=== PATIENT | male | born 1950 | race Caucasian/White ===

== ENCOUNTER 2019-06-17 10:06 | Emergency (ER) | payer MEDICARE, OTHER ==
[~2019-06-17] VITALS: Ht 172.7 cm; Wt 79.4 kg
[2019-06-17] MEDS ORDERED: ASPIRIN 81 MG CHEW (CHILDREN'S ASA) PO ONE (10:30)
[2019-06-17 10:35] LABS: HEMATOCRIT 43 % (40-54); HEMOGLOBIN 15.2 G/DL (13.3-17.7); MEAN CORPUSCULAR HEMOGLOBIN 32 PG (25-34); WHITE BLOOD COUNT 9.1 10^3/uL (4.3-11.0)
[2019-06-17 10:36] LABS: BASOPHILS # (AUTO) 0.1 10^3/uL (0.0-0.1); BASOPHILS % (AUTO) 1 % (0-10); EOSINOPHILS # (AUTO) 0.2 10^3/uL (0.0-0.3); EOSINOPHILS % (AUTO) 3 % (0-10); LYMPHOCYTES # (AUTO) 1.6 X 10^3 (1.0-4.0); LYMPHOCYTES % (AUTO) 18 % (12-44); MEAN CORPUSCULAR HGB CONC 35 G/DL (32-36); MEAN CORPUSCULAR VOLUME 91 FL (80-99); MEAN PLATELET VOLUME 9.9 FL (7.4-10.4); MONOCYTES # (AUTO) 0.7 X 10^3 (0.0-1.0); MONOCYTES % (AUTO) 6 % (0-12); NEUTROPHILS # (AUTO) 6.5 X 10^3 (1.8-7.8); NEUTROPHILS % (AUTO) 71 % (42-75); PLATELET COUNT 175 10^3/uL (130-400); RED CELL DISTRIBUTION WIDTH 12.4 % (10.0-14.5)
--- NOTE | 2019-06-17 10:44 | ED Chest Pain ---
General Chief Complaint: Chest Pain Stated Complaint: CHEST PAIN Source: patient Exam Limitations: no limitations History of Present Illness Date Seen by Provider: Jun 17, 2019 Time Seen by Provider: 10:09 Initial Comments The patient presents to ER by private conveyance with chief complaint of 3 days intermittent chest pain while at rest lasting for a few seconds starting up under his left rib cage and radiating down into his left abdomen. He describes it as a dull, shooting pain. He made an appointment to follow-up with his primary care doctor early next week for this symptom but decided today it might be wiser to get it checked out in the ER. No history of coronary disease CHF. 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 Is not having any significant swelling, orthopnea, shortness of breath or coughing. He does have mild intermittent asthma and has not been using any breathing treatments recently. No fevers or chills, cough. He's having some tenderness and a knot in the muscles on his back as well as tenderness in both anterior rib cages which she associates with musculoskeletal strain. He's having no nausea sweats. Is never a smoker, diabetic and has no history of high cholesterol. He does take medicines for high blood pressure. He says he takes 2x 500 mg tablets of aspirin daily for rheumatoid arthritis. He does not take any DMARDS. Allergies and Home Medications Allergies Coded Allergies: sulfamethoxazole (Verified Allergy, Unknown, anaphylaxis, 06/17/19) trimethoprim (Verified Allergy, Unknown, anaphylaxis, 06/17/19) Patient Home Medication List Home Medication List Reviewed: Yes Review of Systems Review of Systems Constitutional: No chills, No diaphoresis EENTM: No Blurred Vision, No Double Vision Respiratory: Denies Cough, Denies Shortness of Air Cardiovascular: See HPI, Chest Pain, Edema (trace); Denies Lightheadedness, Denies Palpitations, Denies Syncope Gastrointestinal: Denies Constipated, Denies Diarrhea, Denies Nausea Genitourinary: Denies Burning, Denies Discharge Musculoskeletal: see HPI, back pain; No joint pain Past Nhvhmbu-Qsydct-Eblcun Hx Patient Social History Alcohol Use: Denies Use Recreational Drug Use: No Smoking Status: Never a Smoker Physical Exam Vital Signs Vital Signs - First Documented 06/17/19 10:18 Temp 98.0 Pulse 79 Resp 18 B/P (MAP) 142/66 (91) Pulse Ox 79 Capillary Refill : Height, Weight, BMI Height: '" Weight: lbs. oz. kg; BMI Method: General Appearance: No Apparent Distress, WD/WN HEENT: PERRL/EOMI, Pharynx Normal, Moist Mucous Membranes Neck: Full Range of Motion, Normal Inspection Respiratory: Lungs Clear, Normal Breath Sounds, No Accessory Muscle Use, No Respiratory Distress, Other (bilateral chest wall mildly tender to palpation) Cardiovascular: Regular Rate, Rhythm, No Murmur, Normal Peripheral Pulses, Othe r (trace bipedal edema) Gastrointestinal: Normal Bowel Sounds, Non Tender, Soft Neurologic/Psychiatric: Alert, Oriented x3, Normal Mood/Affect Skin: Normal Color, Warm/Dry Progress/Results/Core Measures Results/Orders Lab Results Laboratory Tests Test 06/17/19 10:22 Range/Units White Blood Count 9.1 4.3-11.0 10^3/uL Red Blood Count 4.77 4.35-5.85 10^6/uL Hemoglobin 15.2 13.3-17.7 G/DL Hematocrit 43 40-54 % Mean Corpuscular Volume 91 80-99 FL Mean Corpuscular Hemoglobin 32 25-34 PG Mean Corpuscular Hemoglobin Concent 35 32-36 G/DL Red Cell Distribution Width 12.4 10.0-14.5 % Platelet Count 175 130-400 10^3/uL Mean Platelet Volume 9.9 7.4-10.4 FL Neutrophils (%) (Auto) 71 42-75 % Lymphocytes (%) (Auto) 18 12-44 % Monocytes (%) (Auto) 6 0-12 % Eosinophils (%) (Auto) 3 0-10 % Basophils (%) (Auto) 1 0-10 % Neutrophils # (Auto) 6.5 1.8-7.8 X 10^3 Lymphocytes # (Auto) 1.6 1.0-4.0 X 10^3 Monocytes # (Auto) 0.7 0.0-1.0 X 10^3 Eosinophils # (Auto) 0.2 0.0-0.3 10^3/uL Basophils # (Auto) 0.1 0.0-0.1 10^3/uL Prothrombin Time 12.7 12.2-14.7 SEC INR Comment 0.9 0.8-1.4 Activated Partial Thromboplast Time 29 24-35 SEC Sodium Level 136 135-145 MMOL/L Potassium Level 3.5 L 3.6-5.0 MMOL/L Chloride Level 92 L 98-107 MMOL/L Carbon Dioxide Level 28 21-32 MMOL/L Anion Gap 16 H 5-14 MMOL/L Blood Urea Nitrogen 19 H 7-18 MG/DL Creatinine 1.01 0.60-1.30 MG/DL Estimat Glomerular Filtration Rate > 60 BUN/Creatinine Ratio 19 Glucose Level 105 70-105 MG/DL Calcium Level 9.3 8.5-10.1 MG/DL Corrected Calcium 9.1 8.5-10.1 MG/DL Magnesium Level 2.1 1.6-2.4 MG/DL Total Bilirubin 0.5 0.1-1.0 MG/DL Aspartate Amino Transf (AST/SGOT) 20 5-34 U/L Alanine Aminotransferase (ALT/SGPT) 11 0-55 U/L Alkaline Phosphatase 55 40-136 U/L Myoglobin 74.3 10.0-92.0 NG/ML Troponin I < 0.30 <0.30 NG/ML Pro-B-Type Natriuretic Peptide 94.9 H <75.0 PG/ML Total Protein 6.8 6.4-8.2 GM/DL Albumin 4.2 3.2-4.5 GM/DL My Orders Orders - JUSTIN,TONY J Ekg Tracing (06/17/19 10:12) Continuous Ekg Monitoring (06/17/19 10:12) Cbc With Automated Diff (06/17/19 10:29) Magnesium (06/17/19 10:29) Chest 1 View Ap/Pa Only (06/17/19 10:29) Comprehensive Metabolic Panel (06/17/19 10:29) Myoglobin Serum (06/17/19 10:29) Protime With Inr (06/17/19 10:29) Partial Thromboplastin Time (06/17/19 10:29) O2 (06/17/19 10:29) Lipid Panel (06/18/19 06:00) Aspirin Chewable Tablet (Baby Aspirin Ch (06/17/19 10:30) Ed Iv/Invasive Line Start (06/17/19 10:29) Troponin I (06/17/19 10:29) Probnp Fs (06/17/19 10:29) Troponin I (06/17/19 12:20) Ekg Tracing (06/17/19 11:24) Medications Given in ED Current Medications Medications Dose Ordered Sig/Alfonso Route Start Time Stop Time Status Last Admin Dose Admin Aspirin 324 mg ONCE ONCE PO 06/17/19 10:30 06/17/19 10:31 DC 06/17/19 10:33 324 MG Vital Signs/I&O 06/17/19 10:18 Temp 98.0 Pulse 79 Resp 18 B/P (MAP) 142/66 (91) Pulse Ox 79 Progress Progress Note #1: Time: 10:41 Progress Note Fleeting, seconds long dull achy pain tenderness to palpation over the same areas. Musculoskeletal be most likely. Plan to do a cardiac workup. He's not having any pain at this time. We'll give him aspirin 324 mg and get a chest radiograph. If his troponin is negative then his heart score would be 3 points. Low risk; 0.91.7% 30-day MACE. Progress Note #2: Time: 11:45 Progress Note Discussed the case with the patient and the plan to repeat troponin 3 hours. Patient says he does not want to wait that long and is declined to wait for a second troponin. His chest pain has been intermittent for the last 3 days so one troponin is probably significant enough to rule out at this time. We will give him referral to cardiology but he has an appointment in a couple days with primary care and he says he would prefer to go see them first. I suspect musculoskeletal is very likely and since she started on meloxicam and aspirin and have offered to do prednisone. Initial ECG Impression Date: Jun 17, 2019 Initial ECG Impression Time: 10:12 Initial ECG Rate: 76 Initial ECG Rhythm: Normal Sinus Initial ECG Intervals: QT (417) Initial ECG Impression: Normal Initial ECG Comparisson: No Previous ECG Available Comment Normal sinus rhythm without ST elevation or depression. Diagnostic Imaging Diagonstic Imaging: Xray Plain Films/CT/US/NM/MRI: chest (1v) Comments NAME: JOSE ACEVEDO MED REC#: [id number] PT STATUS: REG ER : 1950 PHYSICIAN: TONY ANDERSON MD ADMIT DATE: 06/17/19/ER FS Draft Date of Exam:06/17/19 CHEST 1 VIEW AP/PA ONLY Chest one view at 1038 hours. INDICATION: Chest pain. There are no prior studies available for comparison. FINDINGS: Heart size is within normal limits. Lungs are clear. There is no evidence for failure, pneumonia or for pleural effusion. The mediastinum is not widened. The osseous structures are intact. IMPRESSION: There is no evidence for an acute cardiopulmonary abnormality. Dictated on workstation # [id number] Dict: 06/17/19 1105 Trans: 06/17/19 1113 [id number] Interpreted by: VERONICA MOSS MD Electronically signed by: Reviewed: Reviewed by Me Departure Impression Primary Impression: Chest wall pain Disposition: HOME, SELF-CARE Condition: Stable Departure-Patient Inst. Decision time for Depature: 11:46 Referrals: Renzo TINEO MD, WESLEY D DO (PCP) Primary Care Physician Patient Instructions: Chest Pain (DC) Add. Discharge Instructions: You may follow-up with cardiology Dr. Tineo in the clinic by calling Wednesday for an appointment. Keep your follow-up appointment with primary care. 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 All discharge instructions reviewed with patient and/or family. Voiced understanding. Scripts Prednisone (Prednisone) 20 Mg Tab 40 MG PO BID for 5 Days, #20 TAB 0 Refills Prov: TONY ANDERSON 06/17/19 TONY ANDERSON Jun 17, 2019 10:44
[2019-06-17 10:45] LABS: INR 0.9 (0.8-1.4); PROTHROMBIN TIME PATIENT 12.7 SEC (12.2-14.7)
[2019-06-17 11:01] LABS: POTASSIUM 3.5 MMOL/L (3.6-5.0); SODIUM 136 MMOL/L (135-145)
[2019-06-17 11:02] LABS: ALANINE AMINOTRANSFERASE 11 U/L (0-55); ALBUMIN 4.2 GM/DL (3.2-4.5); ALKALINE PHOSPHATASE 55 U/L (40-136); BILIRUBIN,TOTAL 0.5 MG/DL (0.1-1.0); BUN/CREATININE RATIO 19; CALCIUM 9.3 MG/DL (8.5-10.1); CARBON DIOXIDE 28 MMOL/L (21-32); CHLORIDE 92 MMOL/L (98-107); CREATININE SERUM 1.01 MG/DL (0.60-1.30); GFR ESTIMATED > 60; GLUCOSE 105 MG/DL (70-105); MAGNESIUM 2.1 MG/DL (1.6-2.4); TOTAL PROTEIN 6.8 GM/DL (6.4-8.2)
--- NOTE | 2019-06-17 11:14 | Diagnostic Imaging Report ---
Chest one view at 1038 hours. INDICATION: Chest pain. There are no prior studies available for comparison. FINDINGS: Heart size is within normal limits. Lungs are clear. There is no evidence for failure, pneumonia or for pleural effusion. The mediastinum is not widened. The osseous structures are intact. IMPRESSION: There is no evidence for an acute cardiopulmonary abnormality. Dictated by: Dictated on workstation # [id number]
[2019-06-17] MEDS ORDERED: PRD20T PO (11:48)
[2019-06-17 11:51] VITALS: BP 130/71
[2019-06-23] MEDS ORDERED: ATOR80TA64 PO (12:52)
== END 2019-06-17 12:11 | disposition home or self-care (01) ==
LOC: ER FS 10:08
DX: R07.89 Other chest pain (principal); J45.20 Mild intermittent asthma, uncomplicated; M06.9 Rheumatoid arthritis, unspecified; Z79.82 Long term (current) use of aspirin; Z88.2 Allergy status to sulfonamides; Z88.1 Allergy status to other antibiotic agents
CPT/HCPCS: 36415; 71045; 80053; 83735; 83874; 83880; 84484; 85025; 85610; 85730; 93005

== ENCOUNTER 2019-06-22 13:13 | Observation (INO) | payer MEDICARE ==
[2019-06-22] VITALS (7 sets, daily range): BP systolic 86–109; BP diastolic 50–79
[~2019-06-22] VITALS: Ht 172.7 cm; Wt 84.4 kg
[~2019-06-22 13:13] MED LIST: PRD20T PO
[2019-06-22 13:39] LABS: BASOPHILS % (AUTO) 1 % (0-10); EOSINOPHILS % (AUTO) 3 % (0-10); HEMATOCRIT 43 % (40-54); HEMOGLOBIN 15.4 G/DL (13.3-17.7); LYMPHOCYTES % (AUTO) 18 % (12-44); MEAN CORPUSCULAR HEMOGLOBIN 32 PG (25-34); MEAN CORPUSCULAR HGB CONC 36 G/DL (32-36); MEAN CORPUSCULAR VOLUME 90 FL (80-99); MEAN PLATELET VOLUME 9.7 FL (7.4-10.4); MONOCYTES % (AUTO) 8 % (0-12); NEUTROPHILS # (AUTO) 7.4 X 10^3 (1.8-7.8); NEUTROPHILS % (AUTO) 70 % (42-75); PLATELET COUNT 184 10^3/uL (130-400); RED CELL DISTRIBUTION WIDTH 12.1 % (10.0-14.5); WHITE BLOOD COUNT 10.5 10^3/uL (4.3-11.0)
[2019-06-22 13:40] LABS: BASOPHILS # (AUTO) 0.1 10^3/uL (0.0-0.1); EOSINOPHILS # (AUTO) 0.2 10^3/uL (0.0-0.3); LYMPHOCYTES # (AUTO) 1.9 X 10^3 (1.0-4.0); MONOCYTES # (AUTO) 0.8 X 10^3 (0.0-1.0)
--- NOTE | 2019-06-22 13:42 | Diagnostic Imaging Report ---
Indication: Chest pain. Frontal chest obtained at 1:15 hours p.m. and compared with 06/17/2019. Heart and mediastinal silhouette are normal in appearance. The lungs appear clear. There is no pneumothorax or pleural fluid. Impression: No acute process in the chest. Dictated by: Dictated on workstation # [id number]
[2019-06-22 13:53] LABS: SODIUM 138 MMOL/L (135-145)
[2019-06-22 13:54] LABS: ALANINE AMINOTRANSFERASE 12 U/L (0-55); ALBUMIN 4.5 GM/DL (3.2-4.5); ALKALINE PHOSPHATASE 56 U/L (40-136); BILIRUBIN,TOTAL 0.8 MG/DL (0.1-1.0); BUN/CREATININE RATIO 19; CALCIUM 9.4 MG/DL (8.5-10.1); CARBON DIOXIDE 29 MMOL/L (21-32); CHLORIDE 96 MMOL/L (98-107); CREATININE SERUM 1.17 MG/DL (0.60-1.30); GFR ESTIMATED > 60; GLUCOSE 117 MG/DL (70-105); POTASSIUM 3.5 MMOL/L (3.6-5.0)
--- NOTE | 2019-06-22 14:33 | ED Chest Pain ---
General Chief Complaint: Chest Pain Stated Complaint: CHEST PAIN Nursing Triage Note: Patient c/o left sided chest pain starting approximately 20 minutes ago. States he was driving home when the pain started. He describes the pain as a sharp tightening almost like a muscle spasm. Prior to arrival at the ER patient states the pain had resolved. He states that his brother had to have a pacemaker last week and he had a close friend pass away of a massive heart attack just a couple of weeks ago. Nursing Sepsis Screen: No Definite Risk Source: patient Exam Limitations: no limitations History of Present Illness Date Seen by Provider: Jun 22, 2019 Time Seen by Provider: 14:28 Initial Comments The patient is a 69-year-old white male who had been here last week with complaint of chest pressure. He reports that he has been under a good deal of stress. 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 In addition his brother had a pacemaker recently and a friend of a heart attack about 2 weeks ago. He reports that he has never had a workup for this. His cholesterol has been good and his physician has been pleased with the his response to therapy. He has lost 90 pounds by dieting and exercise. He reports that this morning he had the onset of this pain while driving his car. This occurred about 20 minutes prior to his arrival. He denied diaphoresis. He reported the area of pain as coming out of his left axilla and horizontally across the chest. He had seen his physician since his ER visit last week and was supposed to be in the process of obtaining a cardiology consultation. Timing/Duration: 1/2 hour Severity/Quality: mild, moderate Allergies and Home Medications Allergies Coded Allergies: sulfamethoxazole (Verified Allergy, Unknown, anaphylaxis, 06/17/19) trimethoprim (Verified Allergy, Unknown, anaphylaxis, 06/17/19) Home Medications Prednisone 20 Mg Tab, 40 MG PO BID Prescribed by: TONY ANDERSON on 06/17/19 1148 Patient Home Medication List Home Medication List Reviewed: Yes Review of Systems Review of Systems Constitutional: see HPI EENTM: No Symptoms Reported Respiratory: No Symptoms Reported Cardiovascular: See HPI, Chest Pain Gastrointestinal: No Symptoms Reported Genitourinary: No Symptoms Reported Musculoskeletal: no symptoms reported Skin: no symptoms reported Psychiatric/Neurological: No Symptoms Reported Endocrine: No Symptoms Reported Hematologic/Lymphatic: No Symptoms Reported Past Fieoplv-Jkhdpn-Wdhebb Hx Patient Social History Alcohol Use: Denies Use Recreational Drug Use: No Smoking Status: Never a Smoker 2nd Hand Smoke Exposure: No Recent Foreign Travel: No Contact w/Someone Who Travel: No Recent Infectious Disease Expo: No Recent Hopitalizations: Yes Physical Abuse: No Sexual Abuse: No Mistreated: No Fear: No Seasonal Allergies Seasonal Allergies: No Past Medical History Surgeries: Yes (carpal tunnel; sinus surgery; hernia repair; Cataracts removal, ) Orthopedic Respiratory: Yes Asthma Cardiac: Yes Hypertension Neurological: No Genitourinary: No Gastrointestinal: No Musculoskeletal: Yes (Restless leg syndrome ) Endocrine: No HEENT: No Cancer: No Psychosocial: Yes Depression Integumentary: No Blood Disorders: No Physical Exam Vital Signs Vital Signs - First Documented 06/22/19 13:15 Temp 36.9 Pulse 84 Resp 21 B/P (MAP) 115/69 (84) Pulse Ox 97 O2 Delivery Room Air Capillary Refill : Less Than 3 Seconds Height, Weight, BMI Height: 5'8.00" Weight: 175lbs. oz. [id number]; 27.00 BMI Method:Stated General Appearance: Anxious HEENT: Normal ENT Inspection Respiratory: Chest Non Tender, Lungs Clear, Normal Breath Sounds, No Accessory Muscle Use, No Respiratory Distress Cardiovascular: Regular Rate, Rhythm, No Edema, No Gallop, No JVD, No Murmur, Normal Peripheral Pulses Gastrointestinal: Normal Bowel Sounds, No Organomegaly, No Pulsatile Mass, Non Tender Extremity: Normal Capillary Refill, Normal Inspection, Normal Range of Motion, Non Tender, No Calf Tenderness, No Pedal Edema Neurologic/Psychiatric: Alert, Oriented x3, No Motor/Sensory Deficits, Normal Mood/Affect, obstetrics gynecology md II-XII Norm as Tested Skin: Normal Color, Warm/Dry Lymphatic: No Adenopathy Progress/Results/Core Measures Results/Orders Lab Results Laboratory Tests Test 06/22/19 13:20 Range/Units White Blood Count 10.5 4.3-11.0 10^3/uL Red Blood Count 4.81 4.35-5.85 10^6/uL Hemoglobin 15.4 13.3-17.7 G/DL Hematocrit 43 40-54 % Mean Corpuscular Volume 90 80-99 FL Mean Corpuscular Hemoglobin 32 25-34 PG Mean Corpuscular Hemoglobin Concent 36 32-36 G/DL Red Cell Distribution Width 12.1 10.0-14.5 % Platelet Count 184 130-400 10^3/uL Mean Platelet Volume 9.7 7.4-10.4 FL Neutrophils (%) (Auto) 70 42-75 % Lymphocytes (%) (Auto) 18 12-44 % Monocytes (%) (Auto) 8 0-12 % Eosinophils (%) (Auto) 3 0-10 % Basophils (%) (Auto) 1 0-10 % Neutrophils # (Auto) 7.4 1.8-7.8 X 10^3 Lymphocytes # (Auto) 1.9 1.0-4.0 X 10^3 Monocytes # (Auto) 0.8 0.0-1.0 X 10^3 Eosinophils # (Auto) 0.2 0.0-0.3 10^3/uL Basophils # (Auto) 0.1 0.0-0.1 10^3/uL Sodium Level 138 135-145 MMOL/L Potassium Level 3.5 L 3.6-5.0 MMOL/L Chloride Level 96 L 98-107 MMOL/L Carbon Dioxide Level 29 21-32 MMOL/L Anion Gap 13 5-14 MMOL/L Blood Urea Nitrogen 22 H 7-18 MG/DL Creatinine 1.17 0.60-1.30 MG/DL Estimat Glomerular Filtration Rate > 60 BUN/Creatinine Ratio 19 Glucose Level 117 H 70-105 MG/DL Calcium Level 9.4 8.5-10.1 MG/DL Corrected Calcium 9.0 8.5-10.1 MG/DL Total Bilirubin 0.8 0.1-1.0 MG/DL Aspartate Amino Transf (AST/SGOT) 23 5-34 U/L Alanine Aminotransferase (ALT/SGPT) 12 0-55 U/L Alkaline Phosphatase 56 40-136 U/L Troponin I < 0.30 <0.30 NG/ML Total Protein 7.0 6.4-8.2 GM/DL Albumin 4.5 3.2-4.5 GM/DL My Orders Orders - GEOVANNY MANUEL MD Ekg Tracing (06/22/19 13:28) Chest 1 View Ap/Pa Only (06/22/19 13:28) Cbc With Automated Diff (06/22/19 13:29) Comprehensive Metabolic Panel (06/22/19 13:29) Troponin I (06/22/19 13:29) Nitroglycerin 0.4 Mg Btl 25's (Nitrostat (06/22/19 14:45) Metoprolol Tartrate (Ir) Tab (Lopressor (06/22/19 14:45) Aspirin Chewable Tablet (Baby Aspirin Ch (06/22/19 14:52) Medications Given in ED Current Medications Medications Dose Ordered Sig/Alfonso Route Start Time Stop Time Status Last Admin Dose Admin Metoprolol Tartrate 25 mg ONCE ONCE PO 06/22/19 14:45 06/22/19 14:48 DC 06/22/19 14:56 25 MG Nitroglycerin 0.4 mg ONCE ONCE SL 06/22/19 14:45 06/22/19 14:48 DC 06/22/19 14:55 0.4 MG Vital Signs/I&O 06/22/19 13:15 Temp 36.9 Pulse 84 Resp 21 B/P (MAP) 115/69 (84) Pulse Ox 97 O2 Delivery Room Air Blood Pressure Mean: 84 Departure Communication (Admissions) The patient's EKG today shows 2 PVCs and a QS complex in V1 and V2 which was present last week. This is suggestive a previous anterior infarct. Troponin is negative at this early point. After further discussion I told the patient I felt it relatively imperative that he seek workup at this point in time. I spoke to Dr. Roman the hospitalist service at 1446. Impression Primary Impression: Chest pain Disposition: ADMITTED INPATIENT Condition: Stable/Unchanged Admissions Decision to Admit Reason: Admit from ER (General) Decision to Admit/Date: Jun 22, 2019 Time/Decision to Admit Time: 14:42 Transfer Time Spoke to Accepting Phy: 14:46 Transfer Progress Notes Discussed with Dr. Brown who has accepted the patient in transfer. LILLI Thompson will be the accounting advisory services manager on-call. Method of Transfer: EMS Departure-Patient Inst. Referrals: VIELKA MARIE DO (PCP/Family) Primary Care Physician GEOVANNY MANUEL MD Jun 22, 2019 14:33
[2019-06-22] MEDS ORDERED: meTOprolol TARTRATE 25 MG (LOPRESSOR) TABLET PO ONE (14:45)
[2019-06-22] MEDS ORDERED: NITROGLYCERIN 0.4 MG SL TABS BTL 25'S SL ONE (14:45)
[2019-06-22] MEDS ORDERED: ASPIRIN 81 MG CHEW (CHILDREN'S ASA) PO STA (14:52)
[2019-06-22] MEDS ORDERED: ASPIRIN 81 MG CHEW (CHILDREN'S ASA) PO ONE (15:00)
[2019-06-22] MEDS ORDERED: NITROGLYCERIN 0.4 MG SL TABS BTL 25'S SL PRN (18:45)
--- NOTE | 2019-06-22 18:51 | Consultation-Cardiology ---
HPI-Cardiology Cardiology Consultation: Date of Consultation 06/22/19 Date of Admission Attending Physician Susi Brown MD Admitting Physician Garret Jiménez DO Consulting Physician Renzo TINEO MD HPI: Time Seen by a Provider: 18:00 Chief Complaint: Chest pain This is a 69-year-old gentleman he complains of recurrent chest pressure episodes. Family history of pacemaker in the brother however no history of premature CAD. No history of active smoking. He has history of hypertension but denies diabetes and hyperlipidemia. He also denies any significant post cardiac history however on my questioning he did tell me that a few years ago he had severe chest pain twice which left him incapacitated for a few minutes but the pain gradually went away. He did not seek medical attention since he did not have insurance. Is complaining of this chest pressure with associated left arm numbness. The recurrent episodes. Moderate intensity. No associated radiation. No associated cardiac symptoms. Pain is like pressure. No exacerbating or relieving factors. Review of Systems-Cardiology Review of Systems Constitutional: As described under HPI; No As described under HPI, No no symptoms reported, No chills, No fever, No lightheadedness Eyes: No As described under HPI, No no symptoms reported, No blindness, No blurred vision, No contact lenses, No drainage, No decreased acuity, No foreign body sensation, No pain, No vision change Ears/Nose/Throat: No As described under HPI, No no symptoms reported, No chr onic hearing loss, No ear discharge, No ear pain, No nasal drainage, No ulcerations Respiratory: No no symptoms reported; As described under HPI; No As described under HPI, No cough, No orthopnea, No shortness of breath, No SOB with excertion Cardiovascular: No no symptoms reported; As described under HPI; No As described under HPI; chest pain; No edema, No irregular heart rate, No lightheadedness, No palpitations Gastrointestinal: No no symptoms reported, No As described under HPI, No abdomen distended, No abdominal pain, No blood streaked bowels, No constipation, No diarrhea, No nausea, No vomiting, No stool coloration changes Genitourinary: No As described under HPI, No burning, No dysuria, No discharge, No frequency, No flank pain, No hematuria, No urgency Skin: No rash, No skin related problems, No ulcerations Psychiatric/Neurological: No anxiety, No depression, No seizure, No focal weakness, No syncope Hematologic: No bleeding abnormalities BFO-Toousd-Tnoqab Hx Patient Social History Alcohol Use: Denies Use Recreational Drug Use: No Smoking Status: Never a Smoker 2nd Hand Smoke Exposure: No Recent Foreign Travel: No Recent Infectious Disease Expo: No Immunizations Up To Date Date of Pneumonia Vaccine: Sep 13, 2017 Past Medical History PMH As described under Assessment. Allergies and Home Medications Allergies Coded Allergies: sulfamethoxazole (Verified Allergy, Unknown, anaphylaxis, 06/17/19) trimethoprim (Verified Allergy, Unknown, anaphylaxis, 06/17/19) Home Medications Aspirin 325 Mg Tablet.dr, 325 MG PO DAILY PRN for PAIN-MILD, (Reported) Cetirizine HCl 10 Mg Tablet, 10 MG PO DAILY PRN for ALLERGIES, (Reported) Duloxetine HCl 30 Mg Capsule.dr, 30 MG PO UD, (Reported) TAKE 1 CAPSULE BY MOUTH DAILY X 10 DAYS, THEN INCREASE TO 2 CAPSULES DAILY- FILLED #60 06-20-19 Furosemide 20 Mg Tablet, 20 MG PO DAILY, (Reported) Lisinopril/Hydrochlorothiazide 1 Each Tablet, 1 TAB PO DAILY, (Reported) Melatonin 5 Mg Capsule, 5 MG PO HS, (Reported) Meloxicam 15 Mg Tablet, 15 MG PO DAILY, (Reported) Montelukast Sodium 10 Mg Tablet, 10 MG PO HS PRN for ALLERGIES, (Reported) Ropinirole HCl 2 Mg Tablet, 6 MG PO 1800, (Reported) TAKES 3 (2MG) TABLETS Tizanidine HCl 4 Mg Tablet, 4 MG PO TID PRN for MUSCLE SPASMS, (Reported) Patient Home Medication List Home Medication List Reviewed: Yes Physical Exam-Cardiology Physical Exam Vital Signs/I&O 06/23/19 06/23/19 06/23/19 06/23/19 01:00 04:00 04:00 04:22 Temp 36.5 Pulse 60 61 Resp 17 B/P (MAP) 108/62 Pulse Ox 94 O2 Delivery Room Air Room Air 06/23/19 06/23/19 06/23/19 06/23/19 07:00 07:23 07:24 07:26 Temp 36.6 Pulse 74 O2 Delivery Room Air Room Air 06/23/19 06/23/19 06/23/19 08:00 12:00 12:00 Temp 36.4 Pulse 102 Resp 57 B/P (MAP) 105/78 Pulse Ox 97 O2 Delivery Room Air Room Air 06/23/19 00:00 Intake Total 315 ml Balance 315 ml Capillary Refill : Less Than 3 Seconds Constitutional: appears stated age, AAO x 3; No apparent distress; well- developed, well-nourished HEENT: PERRL; No discharge; hearing is well preserved, oral hygience is good; No ulceration, No xanthelasmas are seen Neck: No carotid bruit; carotid pulses are 2 + bilaterally Respiratory: No accessory muscle use, No respiratory distress, No chest tender, No chest expansion is symmetric; chest is bilaterally symmetric; No lungs clear to percussion; lungs clear to auscultation; No crackles, No rhonchi, No rales, No stridor, No wheezing, No pleural rub, No other Cardiovascular: regular rate-rhythm; No irregularly irregular, No extra beats, No parasternal heave is noted, No JVD, No edema, No bradycardia, No tachycardia, No point of maximal impulse, No cardiac thrills are palpable; S1 and S2; No gallop/S3, No gallop/S4, No diastolic murmur, No systolic murmur, No friction rub, No click, No other Gastrointestinal: No tender; soft; No round, No distended, No pulsatile mass, No organomegaly, No guarding, No rebound, No tenderness, No hernia, No mass; audible bowel sounds; No abnormal bowel sounds, No abdominal bruits, No spleenomegaly, No other Rectal: deferred Extremities: normal range of motion, non-tender, normal inspection; No clubbing, No cyanosis; no lower extremity edema bilateral; No significant edema Neurologic/Psychiatric: no motor/sensory deficits, alert, normal mood/affect, oriented x 3, power is 5/5 both on sides Skin: normal color; No rash, No ulcerations Data Review Labs Laboratory Tests 06/22/19 13:20: White Blood Count 10.5, Red Blood Count 4.81, Hemoglobin 15.4, Hematocrit 43, Mean Corpuscular Volume 90, Mean Corpuscular Hemoglobin 32, Mean Corpuscular Hemoglobin Concent 36, Red Cell Distribution Width 12.1, Platelet Count 184, Mean Platelet Volume 9.7, Neutrophils (%) (Auto) 70, Lymphocytes (%) (Auto) 18, Monocytes (%) (Auto) 8, Eosinophils (%) (Auto) 3, Basophils (%) (Auto) 1, Neutrophils # (Auto) 7.4, Lymphocytes # (Auto) 1.9, Monocytes # (Auto) 0.8, Eosinophils # (Auto) 0.2, Basophils # (Auto) 0.1, Sodium Level 138, Potassium Level 3.5L, Chloride Level 96L, Carbon Dioxide Level 29, Anion Gap 13, Blood Urea Nitrogen 22H, Creatinine 1.17, Estimat Glomerular Filtration Rate > 60, BUN/Creatinine Ratio 19, Glucose Level 117H, Calcium Level 9.4, Corrected Calcium 9.0, Total Bilirubin 0.8, Aspartate Amino Transf (AST/SGOT) 23, Alanine Aminotransferase (ALT/SGPT) 12, Alkaline Phosphatase 56, Troponin I < 0.30, Total Protein 7.0, Albumin 4.5 06/22/19 18:41: Troponin I < 0.028 06/23/19 04:13: Troponin I < 0.028 ECG Impression ECG Initial ECG Rhythm: Normal Sinus Comment Q waves in lead V1 and V2 suggesting possible old anterior infarct. PVC, Left atrial abnormality. A/P-Cardiology Assessment/Admission Diagnosis Unstable angina, Hypertension Plan This is a 69-year-old gentleman with possible old infarct who presents with prolonged episode of chest pain/pressure with negative first set of troponin. He is not having any current chest pain. I will recommend serial troponin. Echocardiogram. EKG does not demonstrate any acute ST-T wave abnormalities. Q waves in leads V1 and V2 suggest possible old anterior infarct. I have recommended coronary angiography in the morning. All risk and complication were explained in detail including FL and . Patient understands all the risks and complication and would like to proceed with the procedure. We will schedule it on 06/23/2019. Brilinta 180 mg will be given. Continue aspirin. Continue current blood pressure medications. Thank you for your consultation. Please call me if you have any questions. Ld Tineo MD, FACP, FACC, FSCAI, FHRS, CCDS Interventional Cardiology Cardiac Electrophysiology Vascular Medicine and Endovascular Interventions Clinical Quality Measures AMI/AHF: ASA po Prior to arrival: No DVT/VTE Risk/Contraindication: Risk Factor Score Per Nursin RFS Level Per Nursing on Admit: 3=High Renzo TINEO MD Jun 22, 2019 18:51
[2019-06-22] MEDS ORDERED: CATHETER FLUSH 10 ML SYR IV PRN (19:00)
--- NOTE | 2019-06-22 19:01 | NUR ---
lab support service tech came out of patient room et told this nurse, post blood draw patient pulled out a pocket knife et attempted to cut piece of tap off of l index finger, patient ended up cutting finger at that time. this nurse went into patient room, to assess et clean et apply dressing to finger. Patient refused to allow this nurse to apply gauze or bandaid, stated he is going to just put another piece of tape over. This nurse explained to patient that I would need to lock up pocket knife at this time. Patient questioned, this nurse stated that it is considered a weapon, and for our protection and his protection I would have to lock it up until he is discharged. Patient gave this nurse knife, knife locked up in cabinet outside of room.
[2019-06-22] MEDS ORDERED: TICAGRELOR 90 MG TABLET (BRILINTA) PO NR (19:15)
[2019-06-22] MEDS ORDERED: rOPINIRole 1 MG (REQUIP) TABLET PO SCH (21:00)
[2019-06-22] MEDS ORDERED: rOPINIRole 5 MG TAB (REQUIP) PO SCH (21:00)
[2019-06-22] MEDS: CATHETER FLUSH 10 ML SYR IV SCH (21:10)
[2019-06-23 00:08] VITALS: BP 94/54
[2019-06-23 04:00] VITALS: BP 108/62
[2019-06-23] MEDS: CATHETER FLUSH 10 ML SYR IV SCH ×2 (05:37→14:04)
[2019-06-23] MEDS ORDERED: FUROSEMIDE 20 MG (LASIX) TAB PO SCH (07:00)
--- NOTE | 2019-06-23 07:57 | Short Stay Summary-Hospitalist ---
History of Present Illness HPI/Chief Complaint Patient is a 69-year-old male with a past medical history of anxiety, fibromyalgia, hypertension who presented to the emergency department with chief complaint of chest pain. He states his symptoms started on 06/19 where he had a "weird feeling". He states he is very stressed recently as he is taking care of his elderly mother and this is not contributed to his health. He believes he was having muscle spasm in his left chest. He was driving and not exerting himself in anyway when this started. This lasted for a few seconds and then resolved. When it happened again he decided to seek care in the emergency department. He was monitored in the ER was to be discharged home but had recurrent left-sided chest pain and decision was made to admit for observation. He states that his left chest is sore now but he has no pain. Of note he did 40 pushups for the first time in a long time yesterday morning before this started. He denies any nausea,vomiting, radiation of pain, shortness of breath, or di aphoresis. Source: patient Date Seen 06/23/19 Time Seen by a Provider: 07:57 Attending Physician Susi Brown MD PCP Garret Jiménez DO Referring Physician Date of Admission Jun 22, 2019 at 15:25 Home Medications & Allergies Home Medications Reviewed patient Home Medication Reconciliation performed by pharmacy medication reconciliations field technician and/or nursing. Patients Allergies have been reviewed. Allergies Allergies Coded Allergies sulfamethoxazole (Verified Allergy, Unknown, anaphylaxis, 06/17/19) trimethoprim (Verified Allergy, Unknown, anaphylaxis, 06/17/19) Past Rcxkaqn-Rftnmh-Brmntm Hx Past Med/Social Hx: Reviewed Nursing Past Med/Soc Hx Patient Social History Alcohol Use: Denies Use Recreational Drug Use: No Smoking Status: Never a Smoker 2nd Hand Smoke Exposure: No Recent Foreign Travel: No Contact w/other who traveled: No Recent Hopitalizations: Yes Recent Infectious Disease Expo: No Immunizations Up To Date Date of Pneumonia Vaccine: Sep 13, 2017 Seasonal Allergies Seasonal Allergies: No Past Medical History Surgeries: Abdominal (hernia x2), Eye Surgery, Nose (sinus), Orthopedic Cardiac: Hypertension HEENT: Cataract Psychosocial: Anxiety, Depression History of Blood Disorders: No Review of Systems Constitutional: no symptoms reported Respiratory: No cough, No dyspnea on exertion, No orthopnea, No short of breath Cardiovascular: see HPI, chest pain; No edema, No Hx of Intervention, No palpitations, No syncope Gastrointestinal: no symptoms reported; No abdominal pain, No constipation, No diarrhea, No loss of appetite, No nausea, No vomiting Genitourinary: no symptoms reported Musculoskeletal: no symptoms reported Skin: no symptoms reported Psychiatric/Neurological: See HPI, Anxiety Physical Exam Physical Exam Vital Signs Vital Signs - First Documented 06/22/19 13:15 Temp 36.9 Pulse 84 Resp 21 B/P (MAP) 115/69 (84) Pulse Ox 97 O2 Delivery Room Air Capillary Refill : Less Than 3 Seconds Height, Weight, BMI Height: 5'7.99" Weight: 186lbs. 0.6oz. [id number]; 27.4 BMI Method:Stated General Appearance: No Apparent Distress, Anxious HEENT: Moist Mucous Membranes; No Scleral Icterus (L), No Scleral Icterus (R) Neck: Supple; No JVD, No Thyromegaly Respiratory: Lungs Clear, Normal Breath Sounds, No Accessory Muscle Use, No Respiratory Distress Cardiovascular: Regular Rate, Rhythm, No Murmur, Normal Peripheral Pulses Gastrointestinal: Normal Bowel Sounds, No Pulsatile Mass, Non Tender, Soft; No Distended, No Guarding, No Rebound Extremity: Normal Capillary Refill, Normal Inspection, Non Tender, No Calf Tenderness, No Pedal Edema Neurologic/Psychiatric: Alert, Oriented x3, Normal Mood/Affect; No Aphasia, No Facial Droop Skin: Normal Color, Warm/Dry Results Results/Procedures Labs Laboratory Tests 06/22/19 13:20 Patient resulted labs reviewed. Imaging: Reviewed Imaging Report Short Stay Diagnosis Discharge Diagnosis-Short Stay Admission Diagnosis Chest pain Final Discharge Diagnosis Atypical Chest Pain Conclusion Plan Atypical Chest Pain Troponin negative x3 Cardiology consulted, appreciate recs Underwent Cardiac Cath with no intervention Add lipitor, continue aspirin DC home after cath recovery Clinical Quality Measures AMI/AHF: ASA po Prior to arrival: No DVT/VTE Risk/Contraindication: Risk Factor Score Per Nursin RFS Level Per Nursing on Admit: 3=High SUSI BROWN MD Jun 23, 2019 7:57 am
[2019-06-23 08:00] VITALS: BP 105/78
[2019-06-23] MEDS ORDERED: LIDOCAINE 1% INJ 20 ML 20 ML VIAL ONE (08:31)
[2019-06-23] MEDS ORDERED: HEParin (CATH LAB) 2,000 ML IV ONE (08:31)
[2019-06-23] MEDS ORDERED: fentaNYL INJECTION 100 MCG/2 ML AMP ONE (08:40)
[2019-06-23] MEDS ORDERED: MIDAZOLAM 5 MG/5 ML (VERSED) VIAL ONE (08:40)
[2019-06-23] MEDS ORDERED: FURO20TA4 PO (08:44)
[2019-06-23] MEDS ORDERED: LISI1TAB8 PO (08:44)
[2019-06-23] MEDS ORDERED: TIZA4TAB4 PO (08:44)
[2019-06-23] MEDS ORDERED: MONT10TA24 PO (08:45)
[2019-06-23] MEDS ORDERED: CETI10TA20 PO (08:45)
[2019-06-23] MEDS ORDERED: ROPI2TAB4 PO (08:45)
[2019-06-23] MEDS ORDERED: MELO15TA39 PO (08:45)
[2019-06-23] MEDS ORDERED: DULO30CA49 PO (08:45)
[2019-06-23] MEDS ORDERED: ASPI325T32 PO (08:47)
[2019-06-23] MEDS ORDERED: MELA5CAP PO (08:47)
--- NOTE | 2019-06-23 08:48 | NUR ---
SPOKE WITH THE PATIENT ABOUT HIS MEDICATIONS. WE WENT OVER THE EXT MED HX AND HE VERIFIED HOW HE TAKES EACH MEDICATION. HE STATES HE DID FILL THE PREDNISONE THAT WAS PRESCRIBED BY ED HOWEVER HE HAS NOT TAKEN IT. HE TAKES THE FOLLOWING OTC: MELATONIN HS ASPIRIN PRN PAIN ZYRTEC PRN ALLERGIES
[2019-06-23] MEDS ORDERED: NS IV 1000 ML 1,000 ML ONE ×2 (09:05→09:51)
--- NOTE | 2019-06-23 09:05 | NUR ---
PATIENT OFF FLOOR AT THIS TIME WITH DRUM STENCILER STAFF
[2019-06-23] MEDS ORDERED: NITRO DRIP 25000 MCG/D5W 250 ML IV ONE (09:20)
[2019-06-23] MEDS ORDERED: HEParin 1000 UNIT/ML (10ML VIAL) FOR BOLUS ONE (09:20)
[2019-06-23] MEDS ORDERED: VERAPAMIL 5 MG/2 ML (CALAN) VIAL IV ONE (09:20)
[2019-06-23] MEDS: NS IV 1000 ML 1,000 ML IV SCH ×2 (09:20→10:20)
[2019-06-23] MEDS ORDERED: ADENOSINE 3 MG/1 ML (ADENOSCAN) 30ML VIAL IV ONE (09:51)
[2019-06-23] MEDS ORDERED: NS IV 1000 ML 1,000 ML IV SCH (10:29)
--- NOTE | 2019-06-23 10:29 | Coronary Angiography Report ---
Coronary Angiography Report DATE OF PROCEDURE: 06/23/19 INDICATION: Unstable angina, possible old MA. PREOPERATIVE DIAGNOSIS: Unstable angina, possible old M POSTOPERATIVE DIAGNOSIS: Moderate to severe proximal LAD disease. HISTORY: This is a 69-year-old gentleman who presents with prolonged episode of chest pain with negative serial cardiac enzymes. EKG shows Q waves in V1 and V2 suggesting possible old anterior infarct. Therefore, the patient was scheduled for coronary angiography. PROCEDURES PERFORMED: 1.Coronary angiography. 2.Left heart catheterization. 3. Aortic arch angiogram, medical necessity due to difficulty of reaching ostium of the left main, the concern was that the patient has an aortic aneurysm. 4. FFR of the proximal LAD. COMPLICATIONS: None. SPECIMENS: None. ESTIMATED BLOOD LOSS: 10 mL ANESTHESIA: Conscious sedation ANTICOAGULATION: IV heparin CONTRAST: 121 mL. FLUOROSCOPY: 11.9 minutes. FLOUROSCOPY DOSE: 911 mgy. PROCEDURE DETAILS: The patient is a 69 male and was brought to the general labor after informed consent was taken. All the risks and complications were explained in detail; this included the risk of bleeding, vascular damage, stroke, MA and even . The patient was draped and prepped in the usual sterile fashion. Access was gained in the right radial artery with a 6 [place] sheath. Left heart catheterization was performed with the [place] catheter. We were not able to access the left main or the RCA with the [place] catheter. Our concern was that the patient may have dilated ascending thoracic aorta therefore aortic arch angiogram was done with a JR4 catheter. JR4 catheter for RCA angiography and JL4 catheter for cannulation of the left main was used. FINDINGS: 1.Left main: Patent. 2.LAD: Moderate to severe calcified stenosis in the proximal LAD. Stenosis severity 60 percent. 3.Left circumflex artery: Patent. 4.RCA: Spasm noted in the proximal RCA which responded to IC nitroglycerin. No epicardial atherosclerotic disease noted. 5.Left heart catheterization: LV pressure 85/8 mmHg. LVEDP 11 mmHg, aortic pressure 83/57 mmHg. No gradient across the aortic valve. Normal LV function with no wall motion abnormalities. 6. Aortic arch angiogram: No evidence of aortic aneurysm or dissection. Patent proximal segments of the great arteries. Tortuous aorta. Recommendations: FFR to proximal LAD is recommended. FFR details: FFR was done through the JL4 diagnostic catheter. Since it was very difficult to engage the left main therefore we first took a BMW wire and placed it in a high OM1 artery for support. Then the JL4 diagnostic catheter was disengaged from the left main. We used an FFR wire which was advanced into the aorta for equalization. Once equalization was done it was pulled back into the diagnostic catheter. The BMW wire stayed in the left coronary system. The diagnostic catheter was then advanced into the ostium of the left main. We then advanced a FFR wire and crossed the lesion in the LAD and placed the tip of the wire in the mid/distal portion. The BMW wire at this point in time was taken out. Baseline FFR was 0.92. Adenosine was given at 140 g per KG per minute. Lowest FFR was 0.84 which is acceptable therefore PCI was deferred. The wire was taken out and post-angiogram did not show any vascular complication. CONCLUSIONS: Moderate to severe proximal LAD stenosis however with acceptable FFR therefore PCI not done. High-dose statin and aspirin will be recommended. Beta dequan and SHER inhibitor not given due to hypotension. Patient to follow in the office in one month. Ld Tineo MD, FACP, FACC, [facility] Interventional Cardiology Renzo TINEO MD Jun 23, 2019 10:29
--- NOTE | 2019-06-23 10:29 | Cardiac Procedure Note-CS/ASA ---
Pre-Procedure Note Pre-Op Procedure Note H&P Reviewed The H&P was reviewed, patient examined and no changes noted. Date H&P Reviewed: Jun 23, 2019 Time H&P Reviewed: 09:15 Conscious Sedation Pre-Proced Time 09:15 ASA Score 3 For ASA 3 and 4: Consider anesthesia and medical clearance. Also, for patients with a history of failed moderate sedation consider anesthesia. Airway Lungs Heart ASA score ASA 1: a normal healthy patient ASA 2: a patient with a mild systemic disease (mid diabetes, controlled hypertension, obesity ASA 3: a patient with a severe systemic disease that limits activity (angina, COPD, prior Myocardial infarction) ASA 4: a patient with an incapacitating disease that is a constant threat to life (CHF, renal failure) ASA 5: a moribund patient not expected to survive 24 hrs. (ruptured aneurysm) ASA 6: a declared brain- patient whose organs are being harvested. For emergent operations, add the letter E after the classification Mallampati Classification Grade 1 Sedation Plan Analgesia, Amnesia, Plan communicated to team members, Discussed options with patient/fam, Discussed risks with patient/fam The patient is an appropriate candidate to undergo the planned procedure, sedation, and anesthesia. The patient immediately re-assessed prior to indication. Renzo BUENO MD Jun 23, 2019 10:28
[2019-06-23] MEDS ORDERED: PATIENT MAY USE OWN MEDS, ALL PO SCH (10:30)
--- NOTE | 2019-06-23 11:00 | NUR ---
Pastoral care visit.
[2019-06-23 12:00] VITALS: BP 115/89
[2019-06-23] MEDS ORDERED: rOPINIRole 1 MG (REQUIP) TABLET PO NR (12:00)
--- NOTE | 2019-06-23 12:49 | Cardiology Progress Note ---
Cardiology SOAP Progress Note Subjective: No further chest pain. Objective: I&O/Vital Signs 06/23/19 06/23/19 06/23/19 06/23/19 01:00 04:00 04:00 04:22 Temp 36.5 Pulse 60 61 Resp 17 B/P (MAP) 108/62 Pulse Ox 94 O2 Delivery Room Air Room Air 06/23/19 06/23/19 06/23/19 06/23/19 07:00 07:23 07:24 07:26 Temp 36.6 Pulse 74 O2 Delivery Room Air Room Air 06/23/19 06/23/19 06/23/19 08:00 12:00 12:00 Temp 36.4 Pulse 102 Resp 57 B/P (MAP) 105/78 Pulse Ox 97 O2 Delivery Room Air Room Air 06/23/19 00:00 Intake Total 315 ml Balance 315 ml Weight (Pounds): 186 Weight (Ounces): 0.6 Weight (Calculated Kilograms): [id number] Constitutional: appears stated age, AAO x 3; No apparent distress; well- developed, well-nourished Respiratory: No accessory muscle use, No respiratory distress, No chest tender, No chest expansion is symmetric; chest is bilaterally symmetric; No lungs clear to percussion; lungs clear to auscultation; No crackles, No rhonchi, No rales, No stridor, No wheezing, No pleural rub, No other Cardiovascular: regular rate-rhythm; No irregularly irregular, No extra beats, No parasternal heave is noted, No JVD, No edema, No bradycardia, No tachycardia, No point of maximal impulse, No cardiac thrills are palpable; S1 and S2; No gallop/S3, No gallop/S4, No diastolic murmur, No systolic murmur, No friction rub, No click, No other Gastrointestional: No tender; soft; No round, No distended, No pulsatile mass, No organomegaly, No guarding, No rebound, No tenderness, No hernia, No mass; audible bowel sounds; No abnormal bowel sounds, No abdominal bruits, No spleenomegaly, No other Extremities: normal range of motion, non-tender, normal inspection; No clubbing, No cyanosis; no lower extremity edema bilateral; No significant edema Neurologic/Psychiatric: no motor/sensory deficits, alert, normal mood/affect, oriented x 3, power is 5/5 both on sides Skin: normal color; No rash, No ulcerations Results/Procedures: Labs Laboratory Tests 06/22/19 13:20: White Blood Count 10.5, Red Blood Count 4.81, Hemoglobin 15.4, Hematocrit 43, Mean Corpuscular Volume 90, Mean Corpuscular Hemoglobin 32, Mean Corpuscular Hemoglobin Concent 36, Red Cell Distribution Width 12.1, Platelet Count 184, Mean Platelet Volume 9.7, Neutrophils (%) (Auto) 70, Lymphocytes (%) (Auto) 18, Monocytes (%) (Auto) 8, Eosinophils (%) (Auto) 3, Basophils (%) (Auto) 1, Neutrophils # (Auto) 7.4, Lymphocytes # (Auto) 1.9, Monocytes # (Auto) 0.8, Eosinophils # (Auto) 0.2, Basophils # (Auto) 0.1, Sodium Level 138, Potassium Level 3.5L, Chloride Level 96L, Carbon Dioxide Level 29, Anion Gap 13, Blood Urea Nitrogen 22H, Creatinine 1.17, Estimat Glomerular Filtration Rate > 60, BUN/Creatinine Ratio 19, Glucose Level 117H, Calcium Level 9.4, Corrected Calcium 9.0, Total Bilirubin 0.8, Aspartate Amino Transf (AST/SGOT) 23, Alanine Aminotransferase (ALT/SGPT) 12, Alkaline Phosphatase 56, Troponin I < 0.30, Total Protein 7.0, Albumin 4.5 06/22/19 18:41: Troponin I < 0.028 06/23/19 04:13: Troponin I < 0.028 A/P: Assessment/Dx: Unstable angina, Hypertension Plan: Unstable angina, coronary angiography today. Continue aspirin. Serial troponin negative. Echocardiogram 06/23/2019 shows normal LV function with no wall motion abnormalities. No significant valvular heart disease. Hypertension, however patient is hypotensive in the hospital. Hold blood pressure medications. Thank you for your consultation. Please call me if you have any questions. Ld Tineo MD, FACP, FACC, FSCAI, FHRS, CCDS Interventional Cardiology Cardiac Electrophysiology Vascular Medicine and Endovascular Interventions Clinical Quality Measures AMI/AHF: ASA po Prior to arrival: Renzo Hsu MD Jun 23, 2019 12:49
[2019-06-23] MEDS ORDERED: ATOR80TA64 PO (12:52)
--- NOTE | 2019-06-23 12:56 | Discharge Inst-Simple/Standard ---
Discharge Inst-Standard Reconcile Patient Problems Problems Reviewed?: Yes Discharge Medications New, Converted or Re-Newed RX: Transmitted to Pharmacy Patient Instructions/Follow Up Plan of Care/Instructions/FU: Please continue to take your medications as written. Please follow up with your PCP in the next week and your marketing research intern ( Dr Tineo or the one in [place]) in the next two weeks. Activity as Tolerated: Yes Discharge Diet: Cardiac Diet Return to The Hospital For: Chest pain, shortness of breath, if you feel you are getting worse. BERTHA SIMMONS MD Jun 23, 2019 12:56 pm
[2019-06-23 15:55] VITALS: BP 115/89
--- NOTE | 2019-06-23 15:55 | NUR ---
JOSE ACEVEDO demonstrates understanding of discharge instructions and accurately returns instructions upon questioning. Copy of Post-Discharge Instructions and Medication Discharge Instructions given to patient. JOSE ACEVEDO is able to manage continuing needs after discharge. Patients belongings returned to patient. Skin dry and intact; no breakdown noted. Patient discharged from [facility]- on 06/23/19 at 1555. JOSE ACEVEDO left floor ambulatory, accompanied by DAHLIA.
[2019-06-24] MEDS ORDERED: ASPIRIN E.C. 81 MG (ECOTRIN) TAB PO SCH (09:00)
== END 2019-06-23 12:56 | disposition home or self-care (01) ==
LOC: EDUNIT# 13:13 → ER FS 13:14 → UNDOADMOB 15:25 → ICU 15:25 → UNDODISOB 06-23 15:55
PROVIDERS: ADMIT Family Medicine; ATTEND Family Medicine
DX: I25.110 Atherosclerotic heart disease of native coronary artery with unstable angina pectoris (principal); I10 Essential (primary) hypertension; F32.9 Major depressive disorder, single episode, unspecified; J45.909 Unspecified asthma, uncomplicated; G25.81 Restless legs syndrome; Z88.1 Allergy status to other antibiotic agents; Z88.2 Allergy status to sulfonamides; Z79.82 Long term (current) use of aspirin
CPT/HCPCS: 36221; 36415; 71045; 80053; 84484; 85025; 93005; 93306; 93458

== ENCOUNTER → 2019-08-10 | Outpatient (CLI) | payer MEDICARE, OTHER ==
[~2019-08-10] VITALS: Ht 170 cm; Wt 84.0 kg
[~2019-08-10] MED LIST changes: +ASPI325T32 PO; +ATOR80TA64 PO; +CATHETER FLUSH 10 ML SYR IV PRN; +CETI10TA20 PO; +DULO30CA49 PO; +FURO20TA4 PO; +LISI1TAB25 PO; +MELA5CAP PO; +MELO15TA39 PO; +MONT10TA24 PO; +REGADENOSON 0.4 MG/5 ML SYR (LEXISCAN) IV ONE; +ROPI2TAB4 PO; +TIZA4TAB4 PO
[2019-08-10 09:23] VITALS: BP 132/71
[2019-08-10 09:26] VITALS: BP 125/67
--- NOTE | 2019-08-11 10:34 | Cardiology Stress Test Report ---
Stress Test Report Type of NM Stress Test: Test Type: LEXISCAN 0.4MG/5ML Date of Procedure/Referring: Date of Procedure: Aug 10, 2019 PCP Renzo Tineo MD Admitting Physician Garret Jiménez DO Indications: CAD, hyperlipidemia Baseline Heart Rate: 72 Baseline Blood Pressure: Blood Pressure Systolic: 125 Blood Pressure Diastolic: 67 Baseline EKG: Baseline EKG: sinus rhythm Summary & Conclusion: Summary: The patient was brought to the stress lab after informed consent was taken. Stress test was performed according to the Lexiscan protocol. 0.4 mg of IV Lexiscan was given. Low-grade exercise was performed. Baseline EKG showed sinus rhythm at 72 BPM. Initial blood pressure was 132/71 mmHg. Maximum heart rate was 79 bpm and blood pressure 130/78 mmHg. Patient did not have any chest pain, arrhythmias or ST segment changes during the stress test. 10.78 mCi of Myoview were given for rest imaging and 32.2 mCi of Myoview given for stress imaging. Transient ischemic dilatation score 1.15, EF 62 percent. Normal wall motion. Normal myocardial perfusion imaging during rest and stress. Conclusion: Pharmacological stress test was negative for ischemia. Normal LV function with no wall motion abnormalities. Normal myocardial perfusion imaging during rest and stress. Renzo TINEO MD Aug 11, 2019 10:34 POS
== END ==
LOC: CARD 08:36
PROVIDERS: ATTEND Internal Medicine Interventional Cardiology
DX: I25.10 Atherosclerotic heart disease of native coronary artery without angina pectoris (principal); E78.49 Other hyperlipidemia; I10 Essential (primary) hypertension
CPT/HCPCS: 78452; 93017